=== PATIENT | female | born 1960 | race American Indian/Alaskan Native ===

== ENCOUNTER 2017-08-03 13:03 | Emergency (ER) | payer BC ==
[2017-08-03 13:12] VITALS: BP 144/91
[2017-08-03] MEDS ORDERED: ULTRAM PO ONE (15:02)
[2017-08-03] MEDS ORDERED: TYLENOL PO ONE (15:03)
--- NOTE | 2017-08-03 15:19 | Emergency Department Report ---
ED Lower Extremity HPI - General Chief Complaint: Extremity Injury, Lower Stated Complaint: RIGHT KNEE SWOLLEN Time Seen by Provider: 08/03/17 14:46 Source: patient Mode of arrival: Ambulatory Limitations: No Limitations - History of Present Illness Initial Comments: 57-year-old female past medical history hyperlipidemia, chronic right knee pain presents with complaint of acute on chronic right knee pain. Patient states that yesterday walking down steps at home and felt a popping sensation in her right knee and felt pain with walking immediately afterward. Denies any falls. States she went to urgent care and had x-ray and given prescription of meloxicam which she states did not help her which is why she came to the ED today for second opinion. Patient is awake alert and oriented 3 nontoxic- appearing accompanied by and states that for extension of her right knee is painful and that she gets intermittent swelling of her right knee joint. Denies any fevers chills denies any direct trauma otherwise. Antalgic gait secondary to pain has been wearing Farnk wrap on the right knee. MD Complaint: knee injury (right knee) Onset/Timin -: days(s) Injury: Knee: Right Place: street/outdoors Severity: moderate Severity scale (0 -10): 5 Improves With: NSAID, immobilization Worsens With: weight bearing, movement Associated Symptoms: swelling, able to partially bear weight, ambulatory - Related Data Previous Rx's Medication Instructions Recorded Last Taken Type Naproxen [Naprosyn TAB] 375 mg PO BID PRN #30 tablet 08/03/17 Unknown Rx traMADol [Ultram 50 MG tab] 50 mg PO Q6HR PRN #12 tablet 08/03/17 Unknown Rx Allergies Allergy/AdvReac Type Severity Reaction Status Date / Time No Known Allergies Allergy Unverified 08/03/17 13:07 ED Review of Systems ROS: Stated complaint: RIGHT KNEE SWOLLEN Other details as noted in HPI Constitutional: denies: chills, fever Eyes: denies: eye pain, eye discharge, vision change ENT: denies: ear pain, throat pain Respiratory: denies: cough, shortness of breath, wheezing Cardiovascular: denies: chest pain, palpitations Endocrine: no symptoms reported Gastrointestinal: denies: abdominal pain, nausea, diarrhea Genitourinary: denies: urgency, dysuria, discharge Musculoskeletal: as per HPI (intermittent right knee pain and swelling for months to years), joint swelling, arthralgia. denies: back pain Skin: as per HPI. denies: rash, lesions Neurological: denies: headache, weakness, paresthesias Psychiatric: denies: anxiety, depression Hematological/Lymphatic: denies: easy bleeding, easy bruising ED Past Medical Hx - Past Medical History Additional medical history: high chol - Surgical History Past Surgical History?: No - Social History Smoking Status: Never Smoker Substance Use Type: None - Medications Home Medications: Home Medications Medication Instructions Recorded Confirmed Last Taken Type Naproxen [Naprosyn TAB] 375 mg PO BID PRN #30 tablet 08/03/17 Unknown Rx traMADol [Ultram 50 MG tab] 50 mg PO Q6HR PRN #12 tablet 08/03/17 Unknown Rx ED Physical Exam - General Limitations: No Limitations General appearance: alert, in no apparent distress - Head Head exam: Present: atraumatic, normocephalic - Eye Eye exam: Present: normal appearance, PERRL, EOMI - ENT ENT exam: Present: mucous membranes moist - Neck Neck exam: Present: normal inspection - Respiratory Respiratory exam: Present: normal lung sounds bilaterally. Absent: respiratory distress - Cardiovascular Cardiovascular Exam: Present: regular rate, normal rhythm. Absent: systolic murmur, diastolic murmur, rubs, gallop - GI/Abdominal GI/Abdominal exam: Present: soft, normal bowel sounds - Extremities Exam Extremities exam: Present: normal inspection - Expanded Lower Extremity Exam Right Upper Leg exam: Present: normal inspection, full ROM Knee exam: Present: full ROM (knee flexion and extension intact), swelling ( some visible external swelling anterior right knee), full knee extension (pain with full knee extension, negative drawer test posterior anterior negative valgus or varus tests) Lower Leg exam: Present: normal inspection, full ROM Ankle exam: Present: normal inspection, full ROM Foot/Toe exam: Present: normal inspection, full ROM Gait: Positive: antalgic 1 - Pain with palpation here - Back Exam Back exam: Present: normal inspection - Neurological Exam Neurological exam: Present: alert, oriented X3, CN II-XII intact, abnormal gait (antalgic gait secondary to pain) - Psychiatric Psychiatric exam: Present: normal affect, normal mood - Skin Skin exam: Present: warm, dry, intact, normal color. Absent: rash ED Course Vital Signs 08/03/17 13:08 Temperature 97.9 F Pulse Rate 79 Respiratory 16 Rate Blood Pressure 144/91 O2 Sat by Pulse 100 Oximetry ED Lower Extremity MDM - Medical Decision Making A/P: Osteoarthritis right knee, right knee effusion, possible meniscus or ligament injury right knee 1-patient has crutches, will provide knee immobilizer right knee 2-short course tramadol when necessary 3-follow-up with primary care and orthopedics I will refer patient to both 4- right lower extremity neurovascularly intact good distal sensation and good distal pulses on clinical exam strong dorsalis pedis and posterior tibial pulses Critical care attestation.: If time is entered above; I have spent that time in minutes in the direct care of this critically ill patient, excluding procedure time. ED Disposition Clinical Impression: Effusion of right knee Right knee pain Qualifiers: Chronicity: acute Qualified Code(s): M25.561 - Pain in right knee Osteoarthritis Qualifiers: Osteoarthritis location: knee Osteoarthritis type: unspecified Laterality: right Qualified Code(s): M17.11 - Unilateral primary osteoarthritis, right knee Disposition: TO HOME OR SELFCARE Is pt being admited?: No Does the pt Need Aspirin: No Condition: Stable Instructions: Knee Effusion (ED), Osteoarthritis (ED), Arthralgia (ED), RICE Therapy (ED), Knee Immobilizer (ED) Prescriptions: Naproxen [Naprosyn TAB] 375 mg PO BID PRN #30 tablet PRN Reason: Pain traMADol [Ultram 50 MG tab] 50 mg PO Q6HR PRN #12 tablet PRN Reason: Pain Referrals: ALTAGRACIA BORGES MD [Primary Care Provider] - 3-5 Days DINESH WAGNER MD [Staff Physician] - 3-5 Days JANUARY BARCLAY MD [Staff Physician] - 3-5 Days [facility] [Provider Group] - 3-5 Days [facility] [Provider Group] - 3-5 Days Forms: Accompanied Note, Work/School Release Form(ED) Time of Disposition: 15:57
--- NOTE | 2017-08-03 15:40 | XRay Report ---
FINAL REPORT PROCEDURE: XR KNEE 4+V RT TECHNIQUE: RIGHT knee radiographs, AP, lateral and sunrise views. CPT 95253 HISTORY: right knee pain worsening COMPARISON: No prior studies are available for comparison. FINDINGS: Fracture (s) and/or Dislocation(s): None . Alignment: Normal . Joint space(s): Mild degree osteophyte formation is noted involving tibial femoral and patellofemoral joints.. Soft tissues: Normal . Bone mineralization: Normal . Foreign bodies: None . IMPRESSION: Mild degree osteoarthritis.
== END 2017-08-03 16:35 | disposition home or self-care (01) ==
LOC: ED 13:03
DX: M25.561 Pain in right knee (principal); M25.461 Effusion, right knee; M17.11 Unilateral primary osteoarthritis, right knee; E78.5 Hyperlipidemia, unspecified
CPT/HCPCS: 99283